=== PATIENT | female | born 1945 | race Caucasian/White ===

== ENCOUNTER → 2025-03-31 | Outpatient (CLI) | payer MEDICARE, SELFPAY ==
--- NOTE | 2025-03-31 13:05 | XR_ITS ---
Examination: Wrist, left 3 views Technique: Wrist AP, oblique, lateral 3 views Date and time of exam: March 31, 2025, 1330 hours INDICATIONS: Patient fell January 25, 2025, wrist fracture FINDINGS: Significant healing fracture distal radial metaphysis compared with March 31, 2025 with stable alignment Severe osteopenia No new fracture IMPRESSION: Significant healing fracture distal radial metaphysis with stable and satisfactory alignment
== END | disposition home or self-care (01) ==
PROVIDERS: PCP Physician Assistant; Referring Provider Physician Assistant; Visit Provider Physician Assistant
DX: S52.202S Unspecified fracture of shaft of left ulna, sequela (principal); W19.XXXS Unspecified fall, sequela
CPT/HCPCS: 73110